=== PATIENT | female | born 2000 | race Two or more races ===

== ENCOUNTER 2022-05-25 17:22 | Emergency (ER) | payer OTHER ==
[~2022-05-25] VITALS: Ht 167.6 cm; Wt 81.6 kg
--- NOTE | 2022-05-25 18:30 | NUR ---
Pt able to self cath. Urine sent to lab
--- NOTE | 2022-05-25 19:22 | NUR ---
Report to NEEL Cruz
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
--- NOTE | 2022-05-25 19:34 | NUR ---
REPORT RECEIVED FROM NEEL KOVACS
--- NOTE | 2022-05-25 19:34 | NUR ---
TRANSPORTATION ASSISTANT AT BEDSIDE
--- NOTE | 2022-05-25 22:25 | NUR ---
KNEE IMMOBILIZER APPLIED TO LEFT LEG.
--- NOTE | 2022-05-25 22:56 | NUR ---
ASSISTED PT TO CAR.
--- NOTE | 2022-05-25 22:56 | NUR ---
Patient discharged to home in stable condition. Written and verbal after care instructions given. Patient verbalizes understanding of instruction.
[2022-05-25 23:26] VITALS: BP 146/67
== END 2022-05-25 23:27 | disposition home or self-care (01) ==
LOC: ER 17:35
DX: S72.352A Displaced comminuted fracture of shaft of left femur, initial encounter for closed fracture (principal); W05.0XXA Fall from non-moving wheelchair, initial encounter; Y93.89 Activity, other specified; Y92.89 Other specified places as the place of occurrence of the external cause; Y99.8 Other external cause status
CPT/HCPCS: 73502; 73552; 73564-TC; 73590-TC